=== PATIENT | male | born 1965 | race Caucasian/White ===

== ENCOUNTER 2023-11-24 10:33 | Inpatient (IN) | payer BC, SELFPAY ==
[2023-11-24] VITALS (12 sets, daily range): BP systolic 103–153; BP diastolic 70–97; BMI 30.2
--- NOTE | 2023-11-24 08:18 | ED.GENMED ---
History of Present Illness
General
Chief Complaint: Chest Pain
Source: patient
Exam Limitations: none
Time Seen by Provider: 11/24/23 08:08
History of Present Illness
History of Present Illness:
See MDM
Past History
Past History
ED Past Medical History: None
ED Past Surgical History: Orthopedic
Patient has exhibited threatening behavior?: No
Social History
Tobacco: Non-smoker
Alcohol: Occasional
Drug: None
Personal: Partner
Living: with family
Employment: Employed
Family History
Family History: CAD
Phy Exam
Physical Exam
Physical Exam:
See MDM
Scores
Heart Score for Chest Pain Patients
STEMI patient?: No
History: Highly Suspicious
ECG: Nonspecific Repolarization
Age: >45 - <65 years
Risk Factors: 1 or 2 Risk Factors
Troponin: >/= 3 x Normal Limit
Heart Score for Chest Pain Patients: 7
Heart Score Risk: 72.7 % MACE over next 6 weeks
Course
Orders/Labs/Results
Orders:
Orders
11/24/23 07:54
Electrocardiogram (*1) Urgent
Reason for Study: Chest Pain
EKG- Treatment ONCE
11/24/23 08:18
CR Chest - 2 Views Urgent
Comment:
Reason For Exam: intermitent CP with exertion
11/24/23 08:35
Complete Blood Count/With Diff Urgent
Comprehensive Metabolic Panel Urgent
PTT Urgent
Prothrombin Time Urgent
Troponin I Urgent
11/24/23 09:36
Aspirin Chewable [Low Strength Aspirin] 324 mg PO NOW STA
Abnormal Lab Results
11/24/23
08:35
Glucose 120 H mg/dl
(70-99)
Troponin I 0.131 H* ng/ml
11/24/23 08:35
11/24/23 08:35
Vital Signs
Initial and Last Documented VS:
Initial Vital Signs
Temp Pulse Resp BP Pulse Ox
98.2 F 67 16 153/93 97
11/24/23 07:55 11/24/23 07:55 11/24/23 07:55 11/24/23 07:55 11/24/23 07:55
Last Documented Vital Signs
Temp Pulse Resp BP Pulse Ox
98.2 F 53 15 138/88 96
11/24/23 07:55 11/24/23 09:30 11/24/23 09:30 11/24/23 08:11 11/24/23 09:30
MDM/Problems Addressed
Differential Diagnosis Includes:
HPI and MDM Narrative:
58-year-old male presenting with intermittent chest pain. Patient noted the pain last night around 9 PM when he was cleaning out his garage. He developed a central left-sided chest pain and with some tingling down his left arm. Since then, pain
returns with any sort of exertion. It last for 10 or 15 minutes. Patient denies prior history of high blood pressure or past medical history of smoking. He states recent blood work indicated high cholesterol but he has not started medicine yet.
He states his father has history of coronary artery disease. Patient walked back to his ER room from triage and states the pain returned. Currently at rest, patient chest pain-free
Story is concerning for coronary artery disease. EKG shows no evidence of STEMI. Patient currently symptom-free. Will obtain basic blood work, troponin and chest x-ray. Regardless of troponin, will have cardiology evaluate
Physical exam
General: Well appearing and non-toxic
HEENT: protecting airway
Neck: appears supple
CV: No evidence of cyanosis. Regular rate and rhythm
Resp: No accessory muscle use. Lungs clear
Abd: Non-distended
Extremities: No deformities. No leg edema
Neuro: alert
Psych: Normal affect
Skin: Intact
Problems Addressed including Acute and Chronic Conditions affecting care:
1. Exertional chest pain
Acuity: acute
Prognosis: stable
Details: Symptoms resolved at rest. Given his history, will obtain troponin to rule out any evidence of acute coronary syndrome
Updates
9:50 AM patient found to have an expected elevated troponin. Patient still chest pain-free. Will give aspirin. Cardiology made aware. Will start heparin. Will admit
Differential Diagnosis (but not limited to): Acute coronary syndrome, musculoskeletal pain, GERD
Testing considered: D-dimer but is neither tachycardic nor hypoxic
Drug therapy (if applicable): OTC meds, please see d/c instruction regarding Rx drugs
Amount and/or Complexity of Data Reviewed
Clinical info obtained from: Patient
External data reviewed: N/A
Labs I independently reviewed (but not limited to): Elevated troponin
Radiology: X-ray independently reviewed: Chest x-ray clear
Pulse Ox: not hypoxic
EKG independently reviewed: Sinus rhythm, normal axis, no STEMI, inferior Q waves
Thread Winder: Sinus rhythm
Critical Care: The high probability of a clinically significant, sudden or life threatening deterioration of the cardiovascular system(s) required my full and direct attention, intervention and personal management. The aggregate critical care time
was 33 minutes. This time is in addition to time spent performing reported procedures but includes the following:
[x] Data Review and interpretation
[x] Patient assessment and monitoring of vital signs
[x] Documentation
[x] Medication orders and management
Risk of Complication:
Social Determinants of health: Good social support
Discussed with other providers: Hospitalist, vertical roll operator
Escalation of Care includes Admit/Obs: Given the concern for NSTEMI, will start heparin and admit
Occasional wrong word or 'sound a like' substitutions may have occurred due to the inherent limitations of voice recognition software. Read the chart carefully and recognize, using context, where substitutions have occurred.
*Critical Care Note
Total Time (30-74mins, 75-104mins- exclusive of procedures): 33 min
ED Attending Note
-
Portions of this chart may have been created with voice recognition software.� Occasional wrong word or��sound alike� substitutions may have occurred due to the inherent limitations of voice recognition software.
Discharge Plan
Departure
Patient Disposition: Admit
Date of Disposition: 11/24/23
Time of Disposition: 09:57
Admit to: IMU
Presentation/result/management discussed w/ accepting MD/DO: Hospitalist
Discharge Problem:
Non-ST elevation PR (NSTEMI)
Prescriptions:
No Action
No Current Medications
0
Referrals:
Genoveva Natarajan PA-C [Family Provider] -
Interventions
Interventions:
*Risk Screen - Suicide Last Done: 11/24/23 08:56
*General Assessment Last Done: 11/24/23 08:56
*Neglect/Abuse Screening Last Done: 11/24/23 08:56
ED- Fall Risk Assessment Last Done: 11/24/23 08:56
*ED COVID-19 Vaccine History Last Done: 11/24/23 08:56
ED- Cardiac Assessment Last Done: 11/24/23 08:56
Discharge Date and Time
Print Language: MAURITANIAN
[2023-11-24 09:05] LABS: % Basophils 0.7 % (0-2); % Eosinophils 1.7 % (0-6); % Immature Granulocytes 0.2 % (0-0.5); % Lymphocytes 25.8 % (20.5-51.1); % Monocytes 7.4 % (1.7-9.3); % Neutrophils 64.2 % (42.2-75.2); Absolute Eosinophils 0.1 10^3/uL (0-0.7); Absolute Lymphocytes 1.4 10^3/uL (1.2-3.4); Absolute Monocytes 0.4 10^3/uL (0.1-0.6); Absolute Neutrophils 3.5 10^3/uL (1.4-6.5); Hemoglobin 15.2 g/dL (13.0-18.0); Mean Corp Hgb Conc. 34.5 g/dL (33.0-37.0); Mean Corpuscular Hgb 29.7 pg (27.0-31.0); Mean Corpuscular Volume 85.9 fL (80.0-94.0); Mean Platelet Volume 9.6 fL (7.4-10.4); Nucleated Red Blood Cells % 0 % (-); Platelet Count 198 10^3/uL (130-400); Red Blood Cell Count 5.12 10^6/uL (4.70-6.10); Red Cell Dist. Width 12.9 % (11.5-14.5); White Blood Cell Count 5.4 10^3/uL (4.8-10.8)
[2023-11-24 09:14] LABS: INR 1.01; PT 13.1 Sec (11.4-14.6)
[2023-11-24 09:15] LABS: APTT 29.6 Sec (23.4-35.0)
[2023-11-24 09:18] LABS: ALT (SGPT) 38 U/L (0-50); AST (SGOT) 29 U/L (17-59); Albumin 4.4 g/dl (3.5-5.0); Alkaline Phosphatase 59 U/L (38-126); Blood Urea Nitrogen 16 mg/dl (9-20); Calcium 9.8 mg/dl (8.4-10.2); Carbon Dioxide 29 mmol/L (22-30); Chloride 101 mmol/L (98-107); Glucose 120 mg/dl (70-99); Potassium 4.5 mmol/L (3.5-5.1); Sodium 141 mmol/L (135-145); Total Bilirubin 0.5 mg/dl (0.2-1.3); eGFR > 60.00
[2023-11-24 09:33] LABS: Troponin I 0.131 ng/ml
[2023-11-24] MEDS: LOW STRENGTH ASPIRIN 324 MG PO (09:47)
[2023-11-24] MEDS: HEPARIN 25000 UNITS/250 ML IV (10:18)
[2023-11-24] MEDS: HEPARIN 4000 UNITS IV (10:18)
--- NOTE | 2023-11-24 10:22 | HPS.HSE ---
Addendum entered and electronically signed by Joey Lee MD 11/24/23 11:17:
58 yo male with PMH of hyperlipidemia (not on meds), FH CAD is admitted with chest pain. Occurred last night while working in his garage, then again this AM when he was carrying a ladder. This AM, episode was associated with nausea, vomiting,
diaphoresis. Exam with RRR, no murmur, no edema. EKG: NSR, inferior infarct. TnI 0.1.
CAD/NSTEMI. ASA 324mg, heparin drip. Cath and echo today.
Original Note:
Family Physician
-
Family Physician: Genoveva Natarajan
Chief Complaint
-
Chest pain
History of Present Illness
Riley Mccullough is a 58-year-old male without a significant past medical history other than recently diagnosed dyslipidemia who presented to the emergency department this morning with a chief complaint of chest pain. His chest pain started last
evening when he was cleaning out the garage. It lasted for a few minutes and then would resolve when he stops performing activity. He reports it felt like there was some pressure that was stuck in his chest. While he was laying in bed last night,
the chest discomfort kept returning despite being at rest. It radiated into his left axilla. He reports it was moderate in intensity. This morning, he went to work and while carrying a ladder had worsening chest pain. It became severe. He
became sweaty. He then began vomiting. He denies associated dizziness. EKG with sinus bradycardia and inferior ST abnormality. Troponin 0.131. He was given aspirin 324 mg. He was given a heparin bolus and has been initiated on a drip. He is
currently chest pain-free at the time of this consultation. The plan is for cardiac catheterization today.
Medical History
Past Medical History
Past Medical History: Reports Hypercholesterolemia
Past Surgical History: Reports Orthopedic (Left ACL [2010], right ACL [2015])
Social History
Tobacco: Non-smoker
Alcohol: Occasional (3 drinks per week)
Drug: None
Personal: Other (Significant other [Leah])
Living: With Family
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
Family History
Family History: CAD (Father with CABG x 6 in his 70s)
Allergies / Home Medications
Allergies reflects when Allergies were last updated in [facility].
Home Medications with original date entered in [facility]
Allergy/Medication List:
Allergies:
Patient denies food and drug allergies.
Home medications:
Denies
Review of Systems
-
History Source: Patient
A 12 point ROS was completed and negative except as noted: Yes
Constitutional: Reports No Symptoms
EENT: Reports No Symptoms
Respiratory: Reports No Symptoms
Cardiac: Reports See HPI
Abdomen/GI: Reports No Symptoms
: Reports No Symptoms
Musculoskeletal: Reports No Symptoms
Skin: Reports No Symptoms
Neurological: Reports No Symptoms
Endocrine: Reports No Symptoms
Hematologic/Lymphatic: Reports No Symptoms
Psych: Reports No Symptoms
Physical Exam
Vital Signs
Vital Signs
Temp Pulse Resp BP Pulse Ox
98.2 F 52 14 116/88 97
11/24/23 07:55 11/24/23 09:48 11/24/23 09:48 11/24/23 09:48 11/24/23 09:48
Physical Exam
General: Well Developed, Well Nourished, No Apparent Distress, Comfortable and Other (Flushed)
HEENT: NormoCephalic, Anicteric and Moist mucous membranes
Respiratory: Clear and Non Labored Respirations
Cardiac: S1/S2, Regular Rhythm and Bradycardia; No Peripheral Edema
Breast: Deferred by me
GI: Soft, Non Tender, Non Distended and Normal Bowel Sounds
Rectal: Deferred by Provider
Genito-urinary: Deferred by me
Musculoskeletal: No Clubbing, No Cyanosis and No Edema
Skin: Warm and Dry
Neuro: AO x 3
Hematologic/Lymphatic: No Lymphadenopathy
Psych: Calm
Laboratory Results
-
11/24/23 08:35
11/24/23 08:35
Laboratory Results
PT 13.1 Sec (11.4-14.6) 11/24/23 08:35
INR 1.01 11/24/23 08:35
APTT 29.6 Sec (23.4-35.0) 11/24/23 08:35
Total Bilirubin 0.5 mg/dl (0.2-1.3) 11/24/23 08:35
AST 29 U/L (17-59) 11/24/23 08:35
ALT 38 U/L (0-50) 11/24/23 08:35
Alkaline Phosphatase 59 U/L (38-126) 11/24/23 08:35
Troponin I 0.131 ng/ml H* 11/24/23 08:35
Data Reviewed
-
Diagnostic Radiology: Report Reviewed by me (EKG with inferior ST abnormality)
Lab Data: Labs Reviewed by me
Old Records: Reviewed (Outpatient records in [facility])
Impression/Plan
-
BACKGROUND: 58M presented with chest pain found to have NSTEMI
NSTEMI
-EKG with inferior ST abnormality
-Initial troponin 0.131, trend to peak
-CXR without acute pathology
-ASA 324 mg along with heparin bolus and drip
-HgbA1c pending
-Echocardiogram
-Cardiac catheterization today
-Nitrostat as needed for chest pain
Dyslipidemia, reports recent diagnosis, fasting lipid panel in a.m.
[2023-11-24 12:23] LABS: Glycohemoglobin (HgbA1c) 5.9 % (4.0-5.6)
[2023-11-24 12:35] LABS: Troponin I 0.479 ng/ml
--- NOTE | 2023-11-24 15:24 | CARDSERVLU ---
Echocardiogram with Lumason completed after protocol screening completed. Allergies verified.
Patent IV site: __LAC__
IV site flushed with 0.9% NaCl pre and post administration.
Diluted bolus method utilized to enhance visualization of ventricular doshi.
Total volume given: __2.5__ mL
Patient tolerated all procedures well without complications.
[2023-11-24 16:50] LABS: ACT-LR - POC 397 Seconds (116-155)
--- NOTE | 2023-11-24 17:13 | ITS.CL.ANGIO ---
Edge Stripper - Angioplasty
Angioplasty
Procedure Report:
CARDIAC CATHETERIZATION REPORT
Date of Procedure: 11/24/2023
Referring: Joey Lee M.D., Ph.D.
INDICATION: Non-ST elevation myocardial infarction.
PROCEDURE:
1. Left heart catheterization.
2. Coronary angiography.
3. Successful PCI of the distal right coronary artery.
ACCESS:
6 Vietnamese right radial artery.
CATHETERS:
1. 5 Vietnamese JR4.
2. 5 Vietnamese JL 3.5.
3. 6 Vietnamese JR4 guiding catheter.
HEMODYNAMIC DATA
Weight (kg): 92.5
AO (s/d/x, mmHg): 126/93/108
LV (s/x mmHg): 132/16
LEFT VENTRICULOGRAPHY: Not performed.
CORONARY ANGIOGRAPHY
Dominance: Right.
Left Main: Normal size, bifurcating vessel. There is no coronary artery disease.
LAD: Normal size vessel giving rise to 2 significant diagonals. The first diagonal is a large size vessel supplying the majority of the lateral wall. There is mild to moderate, diffuse coronary disease throughout the entire vessel.
Ramus: Congenitally absent.
Circumflex: Normal size, nondominant vessel giving rise to 2 obtuse marginals. OM 1 is a 1 mm vessel with a 70% lesion in its proximal margin, too small for intervention. OM 2 is a more substantial vessel, though still relatively small. There
is a 70-80% lesion in its mid third.
RCA: Large size, dominant vessel with an anterior, superior takeoff. The RPDA originates off of the RV marginal. The distal RCA gives rise to a substantial posterolateral arcade. The distal RCA is acutely occluded.
INTERVENTION(S)
1. Successful PCI of the 100% distal RCA lesion (overlapping Medtronic [place] 2.5 x 26, 2.5 x 15 YOHANA, postdilated with a 2.5 NC balloon) with reduction in stenosis to 0%, restoring SABRINA-3 flow.
Narrative:
The decision was made to proceed with percutaneous coronary intervention. The diagnostic catheter was removed over a wire and a 6Fr JR4 guiding catheter was advanced to the aortic root and seated in the right coronary artery. Additional heparin was
given and a Power Turn Flex wire was advanced into the distal RCA. A 6 Vietnamese guide liner was advanced over a 2.0 x 12 semicompliant balloon. The acute, 100% distal RCA lesion was predilated with a 2.0 x 12 semi-compliant balloon to 12 murphy.
Angiography revealed that there were 2 tandem lesions. The 2.0 x 12 semicompliant balloon was withdrawn and a 2.5 x 20 semicompliant balloon was advanced. The lesion was dilated to 12 murphy. The semi-compliant balloon was removed and a Medtronic
[place] 2.5 x 26 drug-eluting stent was advanced. The stent was deployed at 12 atmospheres. The stent balloon was removed. A 2.5 x 20 noncompliant balloon was advanced into the stent and the stent was postdilated to 14 atmospheres. Angiography
was performed in orthogonal views, confirming good stent expansion and an excellent angiographic result but also revealed that there was potentially significant disease proximal to the stented segment that was not previously appreciated given the
anatomic nature of the vessel. The decision was made to extend the stented segment to cover this area. A Medtronic [place] 2.5 x 15 drug-eluting stent was advanced. Meticulous care was taken while positioning the stent, ensuring that there
was adequate overlap with the distal stent but covering the proximal lesion. The stent was deployed at 12 murphy. The stent balloon was withdrawn and the 2.5 x 20 NC balloon was readvanced. The proximal stent margin including the overlap was
postdilated to 14 murphy. Angiography was performed in orthogonal views, confirming good stent expansion and an excellent angiographic result.
The coronary wire was withdrawn and the guide was disengaged from the artery. The catheter was removed over a standard J-wire.
Closure Device: Vascular band.
Radiation (mGy): 1137.37
DAP (cm2.Gy): 67.0237
Fluoroscopy time (minutes): 12.0
Sedation time (minutes): 60
CONCLUSIONS
1. Right dominant circulation with mild to moderate diffuse disease of the LAD, a 70% lesion in a small OM1, a 70% lesion in the mid third of OM 2 and an acute occlusion of the distal RCA, status post successful PCI of the acute occlusion
(overlapping Medtronic [place] 2.5 x 26, 2.5 x 15 YOHANA, postdilated with a 2.5 NC balloon) with reduction in stenosis to 0%, restoring SABRINA-3 flow.
2. Mildly elevated filling pressures (LVEDP = 16 mmHg at 92.5 kg).
RECOMMENDATIONS:
1. Expectant management after cardiac catheterization via right radial approach.
2. Limited weight bearing on the right wrist for one week.
3. Dual antiplatelet therapy with aspirin and ticagrelor for at least 12 months, followed by aspirin indefinitely.
4. Aggressive secondary prevention with high-dose, high potency statin.
5. Echocardiogram ordered and pending.
6. Referral to cardiac rehab.
Copy to: Joey Lee M.D., Ph.D., Genoveva Natarajan PA-C
Kerwin Covington, , FACC, FACP
--- NOTE | 2023-11-24 17:15 | PTCARENOTE ---
Patient received from the bed laborer. Right radial band in place with 8 cc air. SB HR in the 50's. Deneis pain or shortness of breath. Plan of care reviewed, call arteaga in reach
[2023-11-24] MEDS: LIPITOR 80 MG PO (17:39)
[2023-11-24] MEDS: TYLENOL 650 MG PO (19:15)
--- NOTE | 2023-11-24 20:46 | PTCARENOTE ---
R radial TR band removed. 4x4 and tegaderm applied; c/d/i. Tele- SR. HR 50-70s. Pt has no c/o at this time. Currently in bed; call chandler w/in reach.
[2023-11-25 04:27] VITALS: BP 125/75
[2023-11-25 04:49] LABS: Hematocrit 44.2 % (39.0-52.0); Hemoglobin 15.6 g/dL (13.0-18.0); Mean Corp Hgb Conc. 35.3 g/dL (33.0-37.0); Mean Corpuscular Hgb 31.1 pg (27.0-31.0); Mean Corpuscular Volume 88.2 fL (80.0-94.0); Mean Platelet Volume 9.3 fL (7.4-10.4); Platelet Count 178 10^3/uL (130-400); Red Blood Cell Count 5.01 10^6/uL (4.70-6.10); White Blood Cell Count 6.1 10^3/uL (4.8-10.8)
[2023-11-25 05:12] LABS: Blood Urea Nitrogen 15 mg/dl (9-20); Calcium 9.5 mg/dl (8.4-10.2); Carbon Dioxide 21 mmol/L (22-30); Chloride 105 mmol/L (98-107); Estimated Creatinine Clearance 116 ml/min; Glucose 100 mg/dl (70-99); HDL Cholesterol 42 mg/dl; LDL Cholesterol, Calculated 173 mg/dl; Potassium 4.4 mmol/L (3.5-5.1); Sodium 141 mmol/L (135-145); Total Cholesterol 251 mg/dl (50-199); Triglyceride 180 mg/dl (10-149); Very Low Density Lipoprotein 36 mg/dl (0-30); eGFR > 60.00
[2023-11-25 07:51] LABS: ACT-LR - POC > 397 Seconds (116-155)
[2023-11-25 08:16] VITALS: BP 131/73
[2023-11-25] MEDS: ASPIR LOW (ENTERIC COATED) 81 MG PO (08:23)
--- NOTE | 2023-11-25 09:42 | PTCARENOTE ---
Pt noted to have a red petechaie rash on his back and upper chest. Pt states that it is a little itchy. PA aware. Will monitor.
[2023-11-25] MEDS: BRILINTA 90 MG PO ×2 (10:04→19:40)
--- NOTE | 2023-11-25 10:32 | CM ---
Chart reviewed. Patient is independent of ADLS, lives with his significant other in a 2 [address], 0 BETINA, 0 DME. Patient currently with no discharge needs. Plan is to return home. CM to follow
--- NOTE | 2023-11-25 10:36 | CM ---
Pricing on Brilinta 90mg BID through the patient's [facility] is $50 a month. Patient qualifies for the $5 co pay card. I placed it in his red discharge folder. It is in stock at the patient's [facility]. C
--- NOTE | 2023-11-25 10:56 | W.PN.CD ---
Today's Communication / Plan
-
Discharge planning, likely tomorrow.
Impression / Plan
-
Impression/Plan: 58 y/o male without prior past medical history admitted with NSTEMI.
#CAD/NSTEMI
-Acute.
-Troponin peaked at 2.640.
-S/P PCI to dRCA occlusion (overlapping Medronic [place] 2.5 x 26, 2.5 x 15 YOHANA, post dilated with a 2.5 NCB) with reduction in stenosis to 0%, restoring SABRINA III flow.
-Continue DAPT with aspirin and ticagrelor for at least 12 months, followed by aspirin indefinitely.
-TTE shows no regional wall motion abnormalities.
-High dose, high potency statin.
-Referral to cardiac rehab.
#Hyperlipidemia
-New diagnosis.
-Total cholesterol = 251, LDL = 173, HDL = 42, Triglycerides = 180.
-Atorvastatin 80 mg daily.
-Goal LDL < 55.
#Glucose Intolerance
-New diagnosis.
-HbA1c = 5.9%.
-Diet/lifestyle modification.
#Dispo
-IVU status.
-Full code.
-Discharge planning.
Subjective/Interval History:
Cardiac catheterization yesterday showed acute occlusion of the dRCA, s/p PCI.
Nursing documents a pruritic, petechial rash on upper body overnight.
No subjective complaints.
DATA:
Cardiac catheterization/PCI, 11/24/2023:
CONCLUSIONS
1. Right dominant circulation with mild to moderate diffuse disease of the LAD, a 70% lesion in a small OM1, a 70% lesion in the mid third of OM 2 and an acute occlusion of the distal RCA, status post successful PCI of the acute occlusion
(overlapping Medtronic [place] 2.5 x 26, 2.5 x 15 YOHANA, postdilated with a 2.5 NC balloon) with reduction in stenosis to 0%, restoring SABRINA-3 flow.
2. Mildly elevated filling pressures (LVEDP = 16 mmHg at 92.5 kg).
TTE, 11/24/2023:
CONCLUSIONS
Contrast was used.
Normal biventricular size and systolic function without regional wall motion
abnormality. Estimated LVEF 55-60%.
No significant valve disease.
No prior study available for comparison.
Physical Exam
Vital Signs/Labs
Vital Signs
Temp Pulse Resp BP Pulse Ox
36.6 C 63 20 131/73 96
11/25/23 08:15 11/25/23 09:00 11/25/23 08:15 11/25/23 08:16 11/25/23 08:15
11/23/23 11/24/23 11/25/23
11:59 11:59 11:59
Actual Weight 92.8 kg
11/25/23 04:36
11/25/23 04:36
PT 13.1 Sec (11.4-14.6) 11/24/23 08:35
INR 1.01 11/24/23 08:35
APTT Cancelled 11/24/23 16:15
Triglycerides 180 mg/dl (10-149) H 11/25/23 04:36
LDL Cholesterol, Calc 173 mg/dl 11/25/23 04:36
VLDL Cholesterol, Calc 36 mg/dl (0-30) H 11/25/23 04:36
HDL Cholesterol 42 mg/dl 11/25/23 04:36
LAB Results
11/24/23 11/24/23 11/24/23
08:35 11:59 16:25
Troponin I 0.131 H* 0.479 H* D 1.380 H* D
11/24/23 11/25/23
23:04 04:36
Troponin I 2.640 H* D 2.130 H*
Physical Exam
Constitutional: No acute distress and Comfortable
EENT: Anicteric and Moist mucous membranes
Cardiovascular: Rhythm & rate is regular, Pedal edema is absent, JVD pressure is normal, S1S2 is normal and Murmur/rub/gallop absent
Respiratory: Respiratory effort normal, Lungs clear to auscul., Wheeze Absent, Crackles Absent and Rhonchi Absent
GI: Soft, Distention absent, Flat, Non tender and Normal bowel sounds
Neuro/Psych: AO x 3
Other: Skin (The patient has multiple nevi and small AVM's. No obvious rash is present.) and Cath Site (Right radial access site is C/D/I.)
Data Reviewed
-
Date of Service: November 25, 2023
Medical Decision Making: Reviewed Test Results, Independent Historian Assessment and Test Interpretation
EKG: Tracing Personally Visualized and interpreted and Report Reviewed by me
Echo: Tracing Personally Visualized and interpreted and Report Reviewed by me
X-Ray/CT/US/MRI/NUC/PET: Image Personally Visualized and interpreted and Report Reviewed by me
Medical Tests (PFT, Pathology etc): Image Personally Visualized and interpreted, Report Reviewed by me, Discussed with Patient and Discussed with Family
Labs: Labs Reviewed by me
Old Records: Reviewed
[2023-11-25 11:58] VITALS: BP 130/81; BMI 29.3
--- NOTE | 2023-11-25 12:00 | PTCARENOTE ---
Pt without any further 'rash' or itching. Will monitor
[2023-11-25 16:36] VITALS: BP 139/109
[2023-11-25] MEDS: LIPITOR 80 MG PO (17:51)
[2023-11-25 18:59] VITALS: BP 142/95
[2023-11-25 22:15] VITALS: BP 127/93
--- NOTE | 2023-11-25 22:42 | PTCARENOTE ---
Received pt at handoff. AOX3. Tele- SR. HR 60-70s. VSS. R radial site is LARRY. Pt has no c/o at this time. Hygiene completed. Currently in bed; call chandler w/in reach.
[2023-11-26 01:58] VITALS: BP 114/76
[2023-11-26 07:30] VITALS: BP 134/90
[2023-11-26 07:31] VITALS: BMI 29.1
[2023-11-26] MEDS: ASPIR LOW (ENTERIC COATED) 81 MG PO (07:46)
[2023-11-26] MEDS: BRILINTA 90 MG PO (07:46)
--- NOTE | 2023-11-26 07:56 | W.PN.CD ---
Today's Communication / Plan
-
Discharge.
Impression / Plan
-
Impression/Plan: 58 y/o male without prior past medical history admitted with NSTEMI.
#CAD/NSTEMI
-Acute.
-Troponin peaked at 2.640.
-S/P PCI to dRCA occlusion (overlapping [employer] [place] 2.5 x 26, 2.5 x 15 YOHANA, post dilated with a 2.5 NCB) with reduction in stenosis to 0%, restoring SABRINA III flow.
-Continue DAPT with aspirin and ticagrelor for at least 12 months, followed by aspirin indefinitely.
-TTE shows no regional wall motion abnormalities.
-High dose, high potency statin.
-Referral to cardiac rehab.
#Hyperlipidemia
-New diagnosis.
-Total cholesterol = 251, LDL = 173, HDL = 42, Triglycerides = 180.
-Atorvastatin 80 mg daily.
-Goal LDL < 55.
#Glucose Intolerance
-New diagnosis.
-HbA1c = 5.9%.
-Diet/lifestyle modification.
#Dispo
-IVU status.
-Full code.
-Discharge.
Subjective/Interval History:
No acute events.
No subjective complaints.
DATA:
Cardiac catheterization/PCI, 11/24/2023:
CONCLUSIONS
1. Right dominant circulation with mild to moderate diffuse disease of the LAD, a 70% lesion in a small OM1, a 70% lesion in the mid third of OM 2 and an acute occlusion of the distal RCA, status post successful PCI of the acute occlusion
(overlapping [employer] [place] 2.5 x 26, 2.5 x 15 YOHANA, postdilated with a 2.5 NC balloon) with reduction in stenosis to 0%, restoring SABRINA-3 flow.
2. Mildly elevated filling pressures (LVEDP = 16 mmHg at 92.5 kg).
TTE, 11/24/2023:
CONCLUSIONS
Contrast was used.
Normal biventricular size and systolic function without regional wall motion
abnormality. Estimated LVEF 55-60%.
No significant valve disease.
No prior study available for comparison.
Physical Exam
Vital Signs/Labs
Vital Signs
Temp Pulse Resp BP Pulse Ox
36.5 C 64 16 114/76 96
11/26/23 07:28 11/26/23 07:28 11/26/23 07:28 11/26/23 01:58 11/26/23 07:28
11/24/23 11/25/23 11/26/23
11:59 11:59 11:59
Actual Weight 92.8 kg 89.8 kg 89.2 kg
11/25/23 04:36
11/25/23 04:36
PT 13.1 Sec (11.4-14.6) 11/24/23 08:35
INR 1.01 11/24/23 08:35
APTT Cancelled 11/24/23 16:15
Triglycerides 180 mg/dl (10-149) H 11/25/23 04:36
LDL Cholesterol, Calc 173 mg/dl 11/25/23 04:36
VLDL Cholesterol, Calc 36 mg/dl (0-30) H 11/25/23 04:36
HDL Cholesterol 42 mg/dl 11/25/23 04:36
LAB Results
11/24/23 11/24/23 11/24/23
08:35 11:59 16:25
Troponin I 0.131 H* 0.479 H* D 1.380 H* D
11/24/23 11/25/23
23:04 04:36
Troponin I 2.640 H* D 2.130 H*
Physical Exam
Constitutional: No acute distress and Comfortable
EENT: Anicteric and Moist mucous membranes
Cardiovascular: Rhythm & rate is regular, Pedal edema is absent, JVD pressure is normal, S1S2 is normal and Murmur/rub/gallop absent
Respiratory: Respiratory effort normal, Lungs clear to auscul., Wheeze Absent, Crackles Absent and Rhonchi Absent
GI: Soft, Distention absent, Flat, Non tender and Normal bowel sounds
Neuro/Psych: AO x 3
Other: Cath Site (Right radial access site is C/D/I.)
Data Reviewed
-
Date of Service: November 26, 2023
Medical Decision Making: Reviewed Test Results, Independent Historian Assessment and Test Interpretation
EKG: Tracing Personally Visualized and interpreted and Report Reviewed by me
Echo: Tracing Personally Visualized and interpreted and Report Reviewed by me
X-Ray/CT/US/MRI/NUC/PET: Image Personally Visualized and interpreted, Report Reviewed by me, Discussed with Patient and Discussed with Family
Medical Tests (PFT, Pathology etc): Image Personally Visualized and interpreted, Report Reviewed by me, Discussed with Patient and Discussed with Family
Labs: Labs Reviewed by me
--- NOTE | 2023-11-26 08:42 | PTCARENOTE ---
Assumed care at 0700. Patient up walking in room, denies chest pain. SR/SB. EKG completed. Plan of care reviewed, call [facility] in reach
[2023-11-26] MEDS: TOPROL XL 12.5 MG PO (09:37)
--- NOTE | 2023-11-26 10:04 | W.DS.TRANS ---
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
-
Discharge Instructions:
Discharge Diagnosis/Procedures NSTEMI, s/p angioplasty and stent x2 to Right
Coronary artery
Diet Low Cholesterol
Driving Restrictions No driving for 24 hours
Other Services Cardiac Rehab
Instructions:
Stand-Alone Forms: DC Instructions- Cath/EP Lab
Return to Work
Changes to Home Medications: Yes
Discharge Medications:
DC Medications w/original date entered in [facility]
aspirin 81 mg tablet,delayed release 81 mg PO DAILY #90 tabs 11/25/23
atorvastatin 80 mg tablet 80 mg PO QPM #90 tabs 11/25/23
nitroglycerin 0.4 mg sublingual tablet 0.4 mg sublingual [id number] PRN chest pain #25 tabs 11/25/23
ticagrelor 90 mg tablet (Brilinta) 90 mg PO BID #180 tabs 11/25/23
metoprolol succinate 25 mg tablet,extended release 24 hr 12.5 mg (1/2 x 25 mg) PO DAILY #90 tabs 11/26/23
Home Medication Changes
ALL MEDS ARE NEW
Pending Results: No
--- NOTE | 2023-11-26 10:09 | PTCARENOTE ---
Discharge teaching completed, patient verbalized understanding. Coupon booklet and stent information given to the patient. Will will transport patient to home today
--- NOTE | 2023-11-26 10:28 | PTCARENOTE ---
Patient escorted to lobby in a wheelchair
== END 2023-11-26 10:29 | disposition home or self-care (01) | DRG 322 ==
LOC: IVU 10:33
PROVIDERS: Nurse Practitioner; Nurse Practitioner Gerontology; ADMITTING PHYSICIAN Internal Medicine; EMERGENCY PHYSICIAN Student in an Organized Health Care Education/Training Program; FAMILY PHYSICIAN Physician Assistant
PROC: B2111ZZ Fluoroscopy of Multiple Coronary Arteries using Low Osmolar Contrast (ICD-10-PCS; 2023-11-24)
PROC: 027035Z Dilation of Coronary Artery, One Artery with Two Drug-eluting Intraluminal Devices, Percutaneous Approach (ICD-10-PCS; 2023-11-24)
PROC: 4A023N7 Measurement of Cardiac Sampling and Pressure, Left Heart, Percutaneous Approach (ICD-10-PCS; 2023-11-24)
DX: I21.4 Non-ST elevation (NSTEMI) myocardial infarction (principal); I25.10 Atherosclerotic heart disease of native coronary artery without angina pectoris; E78.00 Pure hypercholesterolemia, unspecified; R11.2 Nausea with vomiting, unspecified; Z82.49 Family history of ischemic heart disease and other diseases of the circulatory system
CPT/HCPCS: 71046; 80048; 80053; 80061; 83036; 84484; 85025; 85027; 85347; 85610; 85730; 93005; 93306; 93458; 99291; C1725; C1874; C1894; C9600; Q9950; Q9967

== ENCOUNTER 2024-01-14 16:33 | Outpatient (RCR) | payer BC, SELFPAY | END 2024-01-14 23:59 | disposition home or self-care (01) | LOC: CRHB 16:33 | PROVIDERS: Internal Medicine Cardiovascular Disease; ATTENDING PHYSICIAN Internal Medicine | DX: I21.4 Non-ST elevation (NSTEMI) myocardial infarction (principal); Z95.5 Presence of coronary angioplasty implant and graft | CPT/HCPCS: 93797; 93798 ==

== ENCOUNTER 2024-02-04 16:00 | Outpatient (RCR) | payer BC, SELFPAY | END 2024-02-04 23:59 | disposition home or self-care (01) | LOC: CRHB 16:00 | PROVIDERS: ATTENDING PHYSICIAN Internal Medicine | DX: I21.4 Non-ST elevation (NSTEMI) myocardial infarction (principal); Z95.5 Presence of coronary angioplasty implant and graft | CPT/HCPCS: 93797; 93798 ==

== ENCOUNTER → 2024-02-24 08:22 | Outpatient (REF) | payer BC, SELFPAY ==
[2024-02-24 10:37] LABS: HDL Cholesterol 37 mg/dl; LDL Cholesterol, Calculated 65 mg/dl; Total Cholesterol 118 mg/dl (50-199); Triglyceride 82 mg/dl (10-149); Very Low Density Lipoprotein 16 mg/dl (0-30)
== END ==
LOC: HWLAB 08:22
PROVIDERS: ATTENDING PHYSICIAN Nurse Practitioner; FAMILY PHYSICIAN Physician Assistant
DX: I25.10 Atherosclerotic heart disease of native coronary artery without angina pectoris (principal)
CPT/HCPCS: 36415; 80061

== ENCOUNTER → 2024-07-30 10:18 | Outpatient (REF) | payer BC, SELFPAY ==
[2024-07-30 15:49] LABS: ALT (SGPT) 105 U/L (0-50); AST (SGOT) 44 U/L (17-59); Albumin 4.6 g/dl (3.5-5.0); Alkaline Phosphatase 58 U/L (38-126); Blood Urea Nitrogen 14 mg/dl (9-20); Calcium 9.5 mg/dl (8.4-10.2); Carbon Dioxide 26 mmol/L (22-30); Chloride 108 mmol/L (98-107); Glucose 116 mg/dl (70-99); HDL Cholesterol 40 mg/dl; LDL Cholesterol, Calculated 70 mg/dl; Potassium 4.3 mmol/L (3.5-5.1); Sodium 142 mmol/L (135-145); Total Cholesterol 122 mg/dl (50-199); Total Protein 7.3 g/dl (6.3-8.2); Triglyceride 62 mg/dl (10-149); Very Low Density Lipoprotein 12 mg/dl (0-30); eGFR > 60.00
[2024-07-30 16:01] LABS: % Basophils 0.7 % (0-2); % Eosinophils 1.2 % (0-6); % Immature Granulocytes 0.4 % (0-0.5); % Lymphocytes 22.1 % (20.5-51.1); % Monocytes 7.1 % (1.7-9.3); % Neutrophils 68.5 % (42.2-75.2); Absolute Eosinophils 0.1 10^3/uL (0-0.7); Absolute Lymphocytes 1.3 10^3/uL (1.2-3.4); Absolute Monocytes 0.4 10^3/uL (0.1-0.6); Absolute Neutrophils 3.9 10^3/uL (1.4-6.5); Hematocrit 45.5 % (39.0-52.0); Hemoglobin 15.6 g/dL (13.0-18.0); Mean Corp Hgb Conc. 34.3 g/dL (33.0-37.0); Mean Corpuscular Hgb 30.5 pg (27.0-31.0); Mean Corpuscular Volume 88.9 fL (80.0-94.0); Mean Platelet Volume 9.8 fL (7.4-10.4); Nucleated Red Blood Cells % 0 % (-); Platelet Count 204 10^3/uL (130-400); Red Blood Cell Count 5.12 10^6/uL (4.70-6.10); Red Cell Dist. Width 13.3 % (11.5-14.5); White Blood Cell Count 5.7 10^3/uL (4.8-10.8)
[2024-07-30 16:18] LABS: PSA, Total - Screen 1.32 ng/ml (0.0-4.0)
[2024-07-31 08:28] LABS: Glycohemoglobin (HgbA1c) 6.3 % (4.0-5.6)
== END ==
LOC: HWLAB 10:18
PROVIDERS: ATTENDING PHYSICIAN Physician Assistant; REFERRING PHYSICIAN Internal Medicine Cardiovascular Disease
DX: I21.4 Non-ST elevation (NSTEMI) myocardial infarction (principal); Z95.5 Presence of coronary angioplasty implant and graft; E78.2 Mixed hyperlipidemia; Z12.5 Encounter for screening for malignant neoplasm of prostate
CPT/HCPCS: 36415; 80053; 80061; 83036; 85025; G0103

== ENCOUNTER → 2024-12-08 07:06 | Outpatient (REF) | payer BC, SELFPAY ==
[2024-12-08 09:54] LABS: HDL Cholesterol 41 mg/dl; LDL Cholesterol, Calculated 64 mg/dl; Very Low Density Lipoprotein 13 mg/dl (0-30)
== END ==
LOC: HWLAB 07:06
PROVIDERS: ATTENDING PHYSICIAN Internal Medicine Cardiovascular Disease; FAMILY PHYSICIAN Physician Assistant
DX: E78.2 Mixed hyperlipidemia (principal)
CPT/HCPCS: 36415; 80061